=== PATIENT | male | born 2000 | race Caucasian/White ===

== ENCOUNTER 2024-03-26 09:19 | Emergency (ER) | payer BC, SELFPAY ==
[2024-03-26 09:22] VITALS: BP 132/87; PULSE 96; TEMP 36.6; O2SAT 100; BMI 21.9
--- NOTE | 2024-03-26 10:36 | ED.URI1 ---
HPI - URI/Sore Throat General Chief Complaint: Upper Respiratory Infection Stated Complaint: URI SYMPTOMS Time Seen by Provider: 03/26/24 09:30 Source: patient History of Present Illness HPI Narrative: The patient presented to us with 4 to 5 days history of right ear pain in addition to drainage and also respiratory tract infection symptoms of runny nose and sore throat The patient also mentioned having some cough sometimes productive of phlegm And generalized body ache Related Data Previous Rx's ?Medication ?Instructions ?Recorded ciprofloxacin HCl 0.2 % ear drops 5 drp otic (ear) BID 7 days #14 ea 03/26/24 in a dropperette Allergies Allergy/AdvReac Type Severity Reaction Status Date / Time Penicillins Allergy Severe Rash Verified 03/26/24 09:26 Review of Systems ROS Status of ROS 10 or more systems reviewed and unremarkable except as noted in history and below PFSH PFSH Social History Little interest or pleasure in doing things: not at all Feeling down, depressed, or hopeless: not at all Exam Narrative Exam Narrative: Nurses notes and vital signs reviewed and patient is not hypoxic. General: Well-appearing and in no apparent distress. Skin: Warm, dry, no pallor noted. No rash. Head: Normocephalic, atraumatic. Neck: Supple, non-tender. Eye: Pupils are equal, round and EOMI. No scleral icterus. Ears, Nose, the patient right ear examination shows possible otitis externa with irritation and tympanic membrane is intact but the external auditory canal is irritated ,no nasal mucosal hypertrophy. Oral mucosa is moist, no posterior oropharynx erythema, uvula is mid-line Cardiovascular: Regular Rate and Rhythm without murmur, gallop or rub. Respiratory: No accessory muscle use or respiratory distress. Lungs are clear to auscultation, no wheezing, rales or rhonchi Chest Wall: no tenderness Back: No midline thoracic or lumbar vertebral tenderness. No CVA tenderness Musculoskeletal: normal ROM, no calf or popliteal tenderness, no lower extremity edema/swelling GI: Abdomen is soft, non-distended. Normal bowel sounds. No masses appreciated. No tenderness to palpation. No rebound, guarding, or rigidity noted. Neurological: A&O x4. No cranial nerve dysfunction observed. No truncal ataxia. Moves all extremities. Sensation intact. Psychiatric: Cooperative and interactive. Normal mood and affect. Constitutional Vital Signs, click to edit/add: Last Vital Signs Temp 98 F 03/26/24 09:22 Pulse 96 H 03/26/24 09:22 Resp 18 03/26/24 09:22 BP 132/87 03/26/24 09:22 Pulse Ox 100 03/26/24 09:22 Course Vital Signs Vital signs: Vital Signs Temperature 98 F 03/26/24 09:22 Pulse Rate 96 H 03/26/24 09:22 Respiratory Rate 18 03/26/24 09:22 Blood Pressure 132/87 03/26/24 09:22 Pulse Oximetry 100 03/26/24 09:22 Temperature 98 F 03/26/24 09:22 Pulse Rate 96 H 03/26/24 09:22 Respiratory Rate 18 03/26/24 09:22 Blood Pressure 132/87 03/26/24 09:22 Pulse Oximetry 100 03/26/24 09:22 MDM - URI/Sore Throat MDM Narrative Medical decision making narrative: The patient presented to us with viral illness symptoms he was instructed about supportive care He took some Claritin but it would not help with his viral illness symptoms he was advised to use Mucinex instead Patient also is presenting with possible otitis externa the patient was treated with ciprofloxacin eardrop The patient is to follow up with primary care physician in next 2-3 days or to return to the emergency department should any of the signs or symptoms worsen or new symptoms develop. The patient agrees with the following Diagnosis and Treatment plan and the patient will be discharged home. Discharge Plan Discharge Chief Complaint: Upper Respiratory Infection Clinical Impression: Otitis externa, Acute viral syndrome Patient Disposition: Home, Self-Care Time of Disposition Decision: 09:52 Condition: Good Prescriptions / Home Meds: New ciprofloxacin HCl 0.2 % dropperette 5 drp otic (ear) BID 7 Days Qty: 14 0RF Rx Instructions: please replace with 0.3 % ophthalmic cipro with same instruction if not available Print Language: Micronesian Instructions: Swimmer's Ear (ED), Viral Syndrome (ED) Referrals: Physician,Non-Staff, MD [Primary Care Provider] - 1 week Discharge Date/Time: 03/26/24 10:04
== END 2024-03-26 10:04 | disposition home or self-care (01) ==
PROVIDERS: Emergency Provider Emergency Medicine
DX: H60.91 Unspecified otitis externa, right ear (principal); B34.9 Viral infection, unspecified
CPT/HCPCS: 99283